=== PATIENT | female | born 1940 | race Caucasian/White ===

== ENCOUNTER 2023-05-21 14:30 | Inpatient (IN) | payer BC, OTHER ==
[~2023-05-21] VITALS: Ht 162.6 cm; Wt 81.6 kg
[2023-05-21 14:30] VITALS: BP 102/48; PULSE 63; RESP 16; TEMP 98.1; O2SAT 95
[2023-05-21 15:28] LABS: BASOPHILS # (AUTO) 0.1 K/uL (0.00-0.22); BASOPHILS % (AUTO) 0.9 % (0.0-2.0); EOSINOPHILS # (AUTO) 0.1 K/uL (0-0.4); EOSINOPHILS % (AUTO) 1.2 % (0.0-4.0); HEMATOCRIT 39.6 % (36-48); HEMOGLOBIN 13.7 g/dL (12.0-16.0); LYMPHOCYTES # (AUTO) 1.7 K/uL (2.5-16.5); LYMPHOCYTES % (AUTO) 20.9 % (20.5-51.1); MEAN CORPUSCULAR HEMOGLOBIN 31 pg (27-31); MEAN CORPUSCULAR HGB CONC 35 g/dL (33-37); MEAN CORPUSCULAR VOLUME 89.6 fL (80-94); MONOCYTES # (AUTO) 0.6 K/uL (0.8-1.0); MONOCYTES % (AUTO) 7.1 % (1.7-9.3); NEUTROPHILS # (AUTO) 5.7 K/uL (1.8-7.7); NEUTROPHILS % (AUTO) 69.9 % (42.2-75.2); PLATELET COUNT (AUTO) 210 K/uL (140-450); RED BLOOD CELL COUNT(AUTO) 4.42 MIL/uL (4.20-5.40); RED CELL DISTRIBUTION WIDTH 13.7 % (11.6-13.7); WHITE BLOOD COUNT (AUTO) 8.2 K/uL (4.8-10.8)
[2023-05-21 15:59] LABS: INR 1.06 (0.8-1.2); PARTIAL THROMBOPLASTIN TIME 28.4 secs (22-35.6); PROTHROMBIN TIME 11.1 secs (10.8-13.4)
[2023-05-21 16:02] LABS: ANION GAP 11.9 (8-16); CALCIUM 9.1 mg/dL (8.5-10.1); CARBON DIOXIDE 30.8 mmol/L (21-32); CHLORIDE 99 mmol/L (98-107); CREATININE 1.1 mg/dL (0.6-1.3); GLUCOSE 127 mg/dL (74-106); SODIUM SERUM 139 mmol/L (136-145); UREA NITROGEN, BLOOD 18 mg/dL (7-18)
[2023-05-21 16:03] LABS: POTASSIUM 2.7 mmol/L (3.5-5.1)
[2023-05-21 16:06] LABS: ALANINE AMINOTRANSFERASE 22 U/L (12-78); ALBUMIN 3.4 g/dL (3.4-5.0); ALKALINE PHOSPHATASE 114 U/L (50-136); ASPARTATE AMINOTRANSFERASE 22 U/L (15-37); BILIRUBIN,DIRECT 0.3 mg/dL (0.0-0.3); TOTAL BILIRUBIN 1.1 mg/dL (0.0-1.0)
[2023-05-21] MEDS ORDERED: KCL 20 MEQ IN 100 mL PREMIX 100 ML IV ONE (19:10)
[2023-05-21] MEDS ORDERED: KCL 20 MEQ IN 100 mL PREMIX 200 ML IV ONE (19:10)
[2023-05-21] MEDS ORDERED: HYDROcodone/APAP 5/325 MG 1 TAB TAB PO PRN (22:10)
[2023-05-21] MEDS ORDERED: POTASSIUM CHLORIDE 10 MEQ TABER PO PRN (22:10)
[2023-05-21] MEDS ORDERED: LORazepam 1 MG TAB PO PRN (22:10)
[2023-05-21] MEDS ORDERED: KCL 20 MEQ IN 100 mL PREMIX 200 ML IV PRN (22:10)
[2023-05-21] MEDS ORDERED: ZOLPIDEM 5 MG TAB PO PRN (22:10)
[2023-05-21] MEDS ORDERED: ONDANSETRON 4 MG/2 ML VIAL IVP PRN (22:10)
[2023-05-21] MEDS ORDERED: MAG SULF 2000 MG/WATER PREMIX 50 ML IV PRN (22:10)
[2023-05-21] MEDS ORDERED: MAGNESIUM OXIDE 400 MG TAB PO PRN (22:10)
[2023-05-21] MEDS ORDERED: ACETAMINOPHEN 325 MG TAB PO PRN (22:10)
[2023-05-21 22:40] VITALS: BP 157/75; PULSE 78; RESP 18; TEMP 97.8; O2SAT 100
[2023-05-21] MEDS ORDERED: ASCO500T95 PO (22:43)
[2023-05-21] MEDS ORDERED: LOSA100T52 PO (22:43)
[2023-05-21] MEDS ORDERED: ATOR80TA27 PO (22:43)
[2023-05-21] MEDS ORDERED: SYN.1 PO (22:43)
[2023-05-21] MEDS ORDERED: ZINC100T8 PO (22:43)
[2023-05-21] MEDS ORDERED: FURO-572 PO (22:43)
[2023-05-21] MEDS ORDERED: ASPI-1749 PO (22:43)
[2023-05-21] MEDS ORDERED: POTA10TA70 PO (22:43)
[2023-05-21] MEDS ORDERED: METO25TE2 PO (22:43)
[2023-05-21] MEDS ORDERED: ALPR0.2518 PO (22:43)
[2023-05-21] MEDS ORDERED: VIT1TABL PO (22:43)
[2023-05-21] MEDS ORDERED: MORPHINE SULFATE 2 MG/ML SYR IVP PRN (22:50)
[2023-05-21] MEDS ORDERED: NITROGLYCERIN 0.4 MG TAB SL PRN (22:50)
[2023-05-21 22:52] VITALS: PULSE 58
[2023-05-21 23:52] VITALS: PULSE 69
[2023-05-22 03:50] VITALS: PULSE 69
[2023-05-22 04:00] VITALS: BP 117/51; PULSE 68; RESP 18; TEMP 97; O2SAT 98
[2023-05-22] MEDS: SODIUM CHLORIDE FLUSH 10 ML SYR IVF SCH ×2 (04:01→13:00)
[2023-05-22 07:16] LABS: BASOPHILS # (AUTO) 0.1 K/uL (0.00-0.22); BASOPHILS % (AUTO) 0.7 % (0.0-2.0); EOSINOPHILS % (AUTO) 0.5 % (0.0-4.0); HEMATOCRIT 43.2 % (36-48); HEMOGLOBIN 14.8 g/dL (12.0-16.0); LYMPHOCYTES # (AUTO) 2.1 K/uL (2.5-16.5); LYMPHOCYTES % (AUTO) 26.1 % (20.5-51.1); MEAN CORPUSCULAR HEMOGLOBIN 31 pg (27-31); MEAN CORPUSCULAR HGB CONC 34 g/dL (33-37); MEAN CORPUSCULAR VOLUME 89.7 fL (80-94); MONOCYTES # (AUTO) 0.7 K/uL (0.8-1.0); MONOCYTES % (AUTO) 8.3 % (1.7-9.3); NEUTROPHILS # (AUTO) 5.3 K/uL (1.8-7.7); NEUTROPHILS % (AUTO) 64.4 % (42.2-75.2); PLATELET COUNT (AUTO) 216 K/uL (140-450); RED BLOOD CELL COUNT(AUTO) 4.81 MIL/uL (4.20-5.40); RED CELL DISTRIBUTION WIDTH 13.5 % (11.6-13.7); WHITE BLOOD COUNT (AUTO) 8.2 K/uL (4.8-10.8)
[2023-05-22 08:00] VITALS: BP 121/51; PULSE 60; PULSE 62; RESP 18; TEMP 97.3; O2SAT 99
[2023-05-22 08:06] LABS: ALANINE AMINOTRANSFERASE 24 U/L (12-78); ALBUMIN 3.5 g/dL (3.4-5.0); ALKALINE PHOSPHATASE 101 U/L (50-136); ASPARTATE AMINOTRANSFERASE 19 U/L (15-37); CALCIUM 9.4 mg/dL (8.5-10.1); CARBON DIOXIDE 30.9 mmol/L (21-32); CHLORIDE 96 mmol/L (98-107); CREATININE 0.9 mg/dL (0.6-1.3); GLUCOSE 100 mg/dL (74-106); SODIUM SERUM 138 mmol/L (136-145); TOTAL PROTEIN, SERUM 7.4 g/dL (6.4-8.2); UREA NITROGEN, BLOOD 18 mg/dL (7-18)
[2023-05-22 08:42] LABS: POTASSIUM 2.9 mmol/L (3.5-5.1)
[2023-05-22] MEDS ORDERED: LEVOTHYROXINE 0.1 MG TAB PO SCH (09:00)
[2023-05-22] MEDS ORDERED: ENOXAPARIN 40 MG/0.4 ML SYR SUBQ SCH (09:00)
[2023-05-22] MEDS ORDERED: ATORVASTATIN 80 MG TAB PO SCH (09:00)
[2023-05-22] MEDS ORDERED: DOCUSATE SODIUM 100 MG GELCAP PO SCH (09:00)
[2023-05-22] MEDS ORDERED: ASPIRIN 81 MG TAB.CHEW PO SCH (09:00)
[2023-05-22] MEDS ORDERED: METOPROLOL SUCCINATE 50 MG TABER PO SCH (09:00)
[2023-05-22 10:41] LABS: TOTAL BILIRUBIN 0.9 mg/dL (0.0-1.0)
[2023-05-22 12:00] VITALS: BP 121/50; PULSE 67; PULSE 68; RESP 19; TEMP 97.3; O2SAT 98
[2023-05-22 16:00] VITALS: BP 108/50; PULSE 63; RESP 19; TEMP 97.6; O2SAT 98
[2023-05-22 17:44] VITALS: BP 108/50; PULSE 63; RESP 19; TEMP 97.6
[2023-05-22] MEDS ORDERED: POTASSIUM CHLORIDE 10 MEQ TABER PO SCH (18:00)
[2023-05-23] MEDS ORDERED: LEVOTHYROXINE 0.1 MG TAB PO SCH (06:30)
== END 2023-05-22 18:05 | disposition home or self-care (01) | DRG 641 ==
LOC: MED 14:30 → INTOOBSV 21:49 → MTU 21:49 → OBSVTOIN 21:49 → MTU 22:16
PROVIDERS: ADMIT Hospitalist; ATTEND Hospitalist
DX: E87.6 Hypokalemia (principal); R07.89 Other chest pain; I10 Essential (primary) hypertension; I11.9 Hypertensive heart disease without heart failure; E78.5 Hyperlipidemia, unspecified; E03.9 Hypothyroidism, unspecified; T50.1X5A Adverse effect of loop [high-ceiling] diuretics, initial encounter
CPT/HCPCS: 36415; 71045; 80048; 80053; 80076; 83735; 83880; 84132; 84484; 85025; 85610; 85730; 87081; 93005; 96365; 96366; 99285; G0378; J1650; J3480